=== PATIENT | female | born 1980 | race Two or more races ===

== ENCOUNTER 2022-03-22 17:06 | Emergency (ER) | payer OTHER ==
[~2022-03-22] VITALS: Ht 157.5 cm; Wt 79.4 kg
[2022-03-22 20:50] VITALS: BP 128/85
== END 2022-03-22 21:18 | disposition home or self-care (01) ==
LOC: ER 17:06
DX: S93.402A Sprain of unspecified ligament of left ankle, initial encounter (principal); X50.1XXA Overexertion from prolonged static or awkward postures, initial encounter; Y93.89 Activity, other specified; Y92.89 Other specified places as the place of occurrence of the external cause; Y99.8 Other external cause status
CPT/HCPCS: 73610; 73630